=== PATIENT | male | born 1970 | race Caucasian/White ===

== ENCOUNTER 2016-11-01 15:32 | Emergency (ER) | payer BC ==
[~2016-11-01] VITALS: Ht 175.3 cm; Wt 91.2 kg
[~2016-11-01 15:32] MED LIST: ALBUTEROL SULF8.5 GM IH; ALLEGRA60 MG PO; ATARAX,VISTARIL25 MG PO; MOTRIN800 MG PO; NORCO 5/3251 TABLET PO; PREDNISONE10 MG PO; ULTRAM50 MG PO; ZANTAC150 MG PO; ZYRTEC10 M3 PO
[2016-11-01] MEDS ORDERED: PEN-VEE K,VEET500 MG PO (16:46)
[2016-11-01] MEDS ORDERED: TRAMADOL HCL50 MG PO (16:46)
[2016-11-01] MEDS ORDERED: SINGULAIR10 MG PO (16:58)
[2016-11-01 17:02] VITALS: BP 162/100
== END 2016-11-01 17:02 | disposition home or self-care (01) ==
LOC: EME 15:32
PROC: 3E0T3BZ Introduction of Anesthetic Agent into Peripheral Nerves and Plexi, Percutaneous Approach (ICD-10-PCS; principal; 2016-11-01)
DX: K08.89 Other specified disorders of teeth and supporting structures (principal); K04.7 Periapical abscess without sinus; K03.81 Cracked tooth; Z98.818 Other dental procedure status; F17.210 Nicotine dependence, cigarettes, uncomplicated; Z71.6 Tobacco abuse counseling
CPT/HCPCS: 99281; 99283; S0020